=== PATIENT | female | born 1995 ===

== ENCOUNTER 2024-05-12 08:33 | Outpatient (CLI) | payer BC, SELFPAY ==
--- NOTE | 2024-05-12 | DI.MRI_ITS ---
Exam(s) MR ANGIO BRAIN WO CLINICAL HISTORY: Cognitive changes, R41.89; worsening MACDONALD; h/o thrombosis, Z86.718. TECHNIQUE: Multiplanar multisequence MRA of the brain was performed. COMPARISON: No exams were available for comparison FINDINGS: Carotid Arteries: No aneurysm, occlusion or significant stenosis. Anterior Cerebral Arteries: Right: No aneurysm, occlusion or significant stenosis. Left: No aneurysm, occlusion or significant stenosis. Middle Cerebral Arteries: Right: No aneurysm, occlusion or significant stenosis. Left: No aneurysm, occlusion or significant stenosis. Posterior Cerebral Arteries: Both of the posterior communicating arteries are visualized which is a n ormal variant. Right: No aneurysm, occlusion or significant stenosis. Left: No aneurysm, occlusion or significant stenosis. Vertebral Arteries: Right: No aneurysm, occlusion or significant stenosis. Left: No aneurysm, occlusion or significant stenosis. Basilar Artery: No aneurysm, occlusion or significant stenosis. IMPRESSION: Normal MRA examination of the [place]. DATA REPOSITORY:
== END 2024-05-12 08:53 ==
DX: R41.89 Other symptoms and signs involving cognitive functions and awareness (principal); Z86.718 Personal history of other venous thrombosis and embolism
CPT/HCPCS: 70544